=== PATIENT | male | born 1950 | race Caucasian/White ===

== ENCOUNTER → 2018-04-06 | Outpatient (CLI) | payer MEDICARE ==
[~2018-04-06] MED LIST: ASPI-586 PO; CIPR-225 PO; HYDR-3870 PO; LISI-556 PO; NITR-65 PO; OXYC-471 PO; TAMS0.4C98 PO; TERA5CAP3 PO
--- NOTE | 2018-04-06 15:34 | Diagnostic Imaging Report ---
INDICATION: History of ureteral calculi. COMPARISON: 03/29/2018 FINDINGS: Single supine radiographic view of the abdomen was obtained and demonstrates interval clearing of bilateral ureteral calculi described on prior exam. Residual bilateral nephrolithiasis remains. No unexpected radiopaque foreign bodies are seen. Small bowel loops are nondistended. Bony structures show degenerative changes of the lumbar spine. IMPRESSION: 1. Interval clearing of bilateral ureteral calculi. 2. Persistent bilateral nephrolithiasis. Dictated by: Dictated on workstation # [id number]
== END ==
LOC: RAD 11:32
PROVIDERS: ATTEND Urology
DX: N20.0 Calculus of kidney (principal); Z87.442 Personal history of urinary calculi
CPT/HCPCS: 74018

== ENCOUNTER → 2018-04-12 | Outpatient (CLI) | payer MEDICARE ==
--- NOTE | 2018-04-12 13:36 | Diagnostic Imaging Report ---
INDICATION: Renal calculi. Supine view of the abdomen is obtained with comparison made to study of 04/06/2018. FINDINGS: There are numerous bilateral renal calculi again demonstrated. In addition there are stones which project to the left of L5 indicating probable ureteric location. There is no evidence of bowel obstruction. No other significant change is identified. IMPRESSION: Bilateral nephrolithiasis with multiple small stones at the level of the left mid ureter. Clinical correlation is recommended. Dictated by: Dictated on workstation # [id number]
== END ==
LOC: RAD 13:15
PROVIDERS: ATTEND Urology
DX: N20.2 Calculus of kidney with calculus of ureter (principal)
CPT/HCPCS: 74018

== ENCOUNTER 2018-04-13 05:51 | Outpatient (CLI) | payer MEDICARE ==
[~2018-04-13] VITALS: Ht 182.9 cm; Wt 102.1 kg
[~2018-04-13 05:51] MED LIST changes: -LISI-556 PO; -OXYC-471 PO; -TAMS0.4C98 PO
[2018-04-13] MEDS ORDERED: LISI-556 PO (13:10)
[2018-04-14] MEDS ORDERED: NITR-65 PO (13:27)
[2018-04-14] MEDS ORDERED: OXYC-471 PO (13:27)
[2018-04-14] MEDS ORDERED: TAMS0.4C98 PO (13:27)
== END 2018-04-13 13:17 | disposition home or self-care (01) ==
LOC: PREOP 05:51
PROVIDERS: ATTEND Urology
DX: Z01.818 Encounter for other preprocedural examination (principal)

== ENCOUNTER 2018-04-14 08:32 | Day surgery (SDC) | payer MEDICARE ==
[~2018-04-14] VITALS: Ht 182.9 cm; Wt 102.1 kg
[~2018-04-14 08:32] MED LIST changes: +LISI-556 PO
--- OUTSIDE RECORDS SUMMARY | 2018-04-14 08:37 | XMS REPORT | Continuity of Care Document ---
Author Author [facility] Organization [facility] Address Unknown Phone Unavailable Allergies Active Description Code Type Severity Reaction Onset Reported/Identified Relationship to Patient Clinical Status Yes hydrocodone [id number] Drug Allergy Moderate NAUSEA/VOMITTIN 07/23/2015 Medications There is no data. Problems Date Dx Coded Attending Type Code Diagnosis Diagnosed By 07/11/2015 SNEHA MCCALLUM, BETZY A Ot N20.9 07/11/2015 SNEHA MCCALLUM, BETZY A Ot R31.2 07/25/2015 SNEHA MCCALLUM, BETZY A Ot N20.9 07/25/2015 SNEHA MCCALLUM, BETZY A Ot R31.2 07/25/2015 SNEHA MCCALLUM, BETZY A Ot N20.0 07/25/2015 SNEHA MCCALLUM, BETZY A Ot Z01.818 07/25/2015 SNEHA MCCALLUM, BETZY A Ot N20.9 07/25/2015 SNEHA MCCALLUM, BETZY A Ot R31.2 07/25/2015 SNEHA MCCALLUM, BETZY A Ot N20.0 07/25/2015 SNEHA MCCALLUM, BETZY A Ot Z01.818 07/30/2015 SNEHA MCCALLUM, BETZY A Ot N20.0 07/30/2015 SNEHA MCCALLUM, BETZY A Ot Z01.818 07/31/2015 SNEHA MCCALLUM, BETZY A Ot N20.0 07/31/2015 SNEHA MCCALLUM, BETZY A Ot Z11.2 08/06/2015 SNEHA MCCALLUM, BETZY A Ot N20.9 08/06/2015 SNEHA MCCALLUM, BETZY A Ot R31.2 08/06/2015 SNEHA MCCALLUM, BETZY A Ot N20.0 08/06/2015 SNEHA MCCALLUM, BETZY A Ot Z01.818 08/06/2015 SNEHA MCCALLUM, BETZY A Ot N20.0 08/06/2015 SNEHA MCCALLUM, BETZY Mora Ot Z11.2 08/08/2015 SNEHA MCCALLUM, BETZY Mora Ot N20.0 08/08/2015 SNEHA MCCALLUM, BETZY Mora Ot N20.1 08/08/2015 SNEHA MCCALLUM, BETZY A Ot Z11.2 09/05/2015 SNEHA MCCALLUM, BETZY A Ot N20.2 09/05/2015 SNEHA MCCALLUM, BETZY A Ot Z98.89 03/30/2018 SNEHA MCCALLUM, BETZY A Ot N13.2 HYDRONEPHROSIS WITH RENAL AND URETERAL C 03/30/2018 SNEHA MCCALLUM, BETZY Abby Ot N28.89 OTHER SPECIFIED DISORDERS OF KIDNEY AND 03/30/2018 BETZY HOOVER MD Ot R10.9 UNSPECIFIED ABDOMINAL PAIN Procedures There is no data. Results There is no data. Encounters ACCT No. Visit Date/Time Discharge Status Pt. Type Provider Facility Loc./Unit Complaint [id number] 03/29/2018 11:15:00 03/29/2018 23:59:59 CLS Outpatient BETZY HOOVER MD [facility] RAD LT FLANK PAIN,HX OF STONES [id number] 08/20/2015 14:01:00 08/20/2015 23:59:59 CLS Outpatient BETZY HOOVER MD [facility] RAD [id number] 08/08/2015 08:00:00 08/08/2015 13:10:00 DIS Outpatient BETZY HOOVER MD [facility] [id number] 08/07/2015 05:53:00 08/07/2015 23:59:59 CLS Outpatient BETZY HOOVER MD [facility] PREOP [id number] 08/06/2015 13:41:00 08/06/2015 23:59:59 CLS Outpatient BETZY HOOVER MD [facility] RAD [id number] 07/25/2015 05:50:00 07/25/2015 23:59:59 CLS Outpatient BETZY HOOVER MD [facility] [id number] 07/23/2015 06:00:00 07/23/2015 23:59:59 CLS Outpatient BETZY HOOVER MD [facility] PREOP [id number] 06/25/2015 13:13:00 06/25/2015 23:59:59 CLS Outpatient BETZY HOOVER MD [facility] RAD [id number] 04/14/2018 08:32:00 ACT Outpatient BETZY HOOVER MD [facility] SDC LEFT URETERAL STONE
[2018-04-14] MEDS ORDERED: cefTRIAXone FOR IV USE 1,000 MG in NS (IVPB) 50 ML IV ONE (08:45)
--- NOTE | 2018-04-14 08:47 | Progress Note-Pre Operative ---
Pre-Operative Progress Note H&P Reviewed The H&P was reviewed, patient examined and no changes noted. Date Seen by Provider: Apr 14, 2018 Time Seen by Provider: 08:46 Date H&P Reviewed: Apr 14, 2018 Time H&P Reviewed: 08:46 Pre-Operative Diagnosis: LT PROXIMAL URETERAL, BILATERAL RENAL AND POSSIBLE RT URETERAL STONES BETZY HOOVER MD Apr 14, 2018 8:47 am
--- NOTE | 2018-04-14 08:58 | Diagnostic Imaging Report ---
Indication: Ureteral stones. Multiple bilateral parenchymal renal calculi showed no definite change from prior. A calcification projects over the tip of the left fifth lumbar transverse process measuring 5.3 mm and is believed to be a stone. The adjacent stones at that same level have either passed or cannot be from the overlying bony pelvis. No adverse development. Impression: Multiple bilateral intrarenal stones. There is likely reduction in left ureteral stone burden with a 5.3 mm calculus at the level of the fifth lumbar transverse process. Dictated by: Dictated on workstation # [id number]
[2018-04-14 09:00] VITALS: BP 147/86
[2018-04-14] MEDS ORDERED: LACTATED RINGERS 1,000 ML IV PRN (09:16)
[2018-04-14] MEDS ORDERED: FAMOTIDINE 20MG/2ML IV (PEPCID) IV ONE (09:30)
[2018-04-14] MEDS ORDERED: fentaNYL INJECTION 100 MCG/2 ML AMP ONE (11:13)
[2018-04-14] MEDS ORDERED: MIDAZOLAM 2 MG/2 ML (VERSED) VIAL ONE (11:13)
[2018-04-14] MEDS ORDERED: ONDANSETRON 4 MG/2 ML (SDV) Z0FRAN ONE (11:14)
[2018-04-14] MEDS ORDERED: SEVOFLURANE (ULTANE) 15 ML INHAL SOLN ONE (11:14)
[2018-04-14] MEDS ORDERED: KETOROLAC 30 MG/ML VIAL ONE (11:14)
[2018-04-14] MEDS ORDERED: proPOfol 200 MG/20 ML (DIPRIVAN) VIAL IV ONE (11:14)
[2018-04-14] MEDS ORDERED: LIDOCAINE PF 2% 2 ML (XYLOCAINE) VIAL ONE (11:14)
--- NOTE | 2018-04-14 11:39 | Discharge Inst-Urology ---
Discharge Inst-Urology Discharge Medications New, Converted, or Re-newed RX: RX on Chart Patient Instructions/Follow Up Plan Please make appointment to been seen in office Thursday 04/26, KUB prior to it KUB on way home Post ESWL instructions Increase oral fluids for 48 hours and then as needed. Diet and Activity as tolerated. If questions or concerns contact your physician Or seek help at emergency department. BETZY HOOVER MD Apr 14, 2018 11:39 am
--- NOTE | 2018-04-14 11:40 | Progress Note-Post Operative ---
Post-Operative Progess Note Surgeon (s)/Customer Operations Associate (s) Surgeon BETZY HOOVER MD Customer Operations Associate: N/A Pre-Operative Diagnosis LT PROXIMAL URETERAL, BILATERAL RENAL AND POSSIBLE RT URETERAL STONES Post-Operative Diagnosis SAME Procedure & Operative Findings Date of Procedure 04/14/18 Procedure Performed/Findings LT ESWL Anesthesia Type GENERAL Estimated Blood Loss Estimated blood loss (mL): N/A Specimens/Packing Specimens Removed N/A Packing: N/A BETZY HOOVER MD Apr 14, 2018 11:40 am
[2018-04-14] MEDS ORDERED: morphine INJ 10 MG/ML 1ML (SYR OR VIAL) IVP ONE (12:00)
[2018-04-14 12:50] VITALS: BP 117/77
[2018-04-14 13:20] VITALS: BP 121/86
[2018-04-14] MEDS: ONDANSETRON 4 MG/2 ML (SDV) Z0FRAN IVP PRN ×3 (13:26→13:29)
[2018-04-14] MEDS ORDERED: OXYC-471 PO (13:27)
[2018-04-14] MEDS ORDERED: NITR-65 PO (13:27)
[2018-04-14] MEDS ORDERED: TAMS0.4C98 PO (13:27)
--- NOTE | 2018-04-14 14:19 | Anesthesia-General Post-Op ---
General Patient Condition Mental Status/LOC: Same as Preop Cardiovascular: Satisfactory Nausea/Vomiting: Absent Respiratory: Satisfactory Pain: Controlled Complications: Absent Post Op Complications Complications None Follow Up Care/Instructions Patient Instructions None needed. Anesthesia/Patient Condition Patient Condition Patient is doing well, no complaints, stable vital signs, no apparent adverse anesthesia problems. No complications reported per nursing. RENATA RIDDLE CRNA Apr 14, 2018 14:19
[2018-04-14 14:50] VITALS: BP 143/87
--- NOTE | 2018-04-14 15:40 | Diagnostic Imaging Report ---
INDICATION: Status post lithotripsy. EXAMINATION: KUB at 2:10 p.m. COMPARISON: Correlation is made with prior exam from earlier the same day. FINDINGS: Numerous calcific densities overlie both renal shadows consistent with renal calculi. There appears to have been some fragmentation of the calculus in the left mid ureter, status post lithotripsy. Bowel gas pattern is unremarkable. IMPRESSION: Fragmentation of the calculus in the mid left ureter, status post lithotripsy. Dictated by: Dictated on workstation # [id number]
--- NOTE | 2018-04-27 20:02 | OPERATIVE REPORT ---
DATE OF SERVICE: 04/14/2018 PREOPERATIVE DIAGNOSES: 1. Bilateral renal stone. 2. Left proximal renal stones. POSTOPERATIVE DIAGNOSES: 1. Bilateral renal stone. 2. Left proximal renal stones. OPERATION PERFORMED: Left ESWL for right ureteral stones and right renal stones. SURGEON: Mike Hoover MD ANESTHESIA: General. COMPLICATIONS: None. DESCRIPTION OF PROCEDURE: Under satisfactory general anesthesia, the patient in supine position on the ESWL table. We first localized the stones in the proximal left ureter and delivered shocks at a kV of 4 with complete fragmentation of the stones. Then, localized the renal stones and again completely fragmented them with a kV of 4. The patient received 40 mg of Lasix and 30 mg of Toradol IV at the end of the procedure. He tolerated the procedure and anesthesia well and was sent to recovery room in stable condition. Plan in 2 weeks consider ESWL the right renal stone if that is what the patient wants. Job ID: [id number] DocumentID: [id number] Dictated Date: 04/27/2018 13:34:32 Healthcare Translator Date: 04/27/2018 20:01:39 Dictated By: MIKE HOOVER MD [facility]
== END 2018-04-14 14:15 | disposition home or self-care (01) ==
LOC: SDC 08:32
PROVIDERS: ATTEND Urology
DX: N20.0 Calculus of kidney (principal); N20.1 Calculus of ureter; Z11.2 Encounter for screening for other bacterial diseases; N40.0 Benign prostatic hyperplasia without lower urinary tract symptoms; E78.1 Pure hyperglyceridemia; G47.33 Obstructive sleep apnea (adult) (pediatric); I10 Essential (primary) hypertension; E78.5 Hyperlipidemia, unspecified; K21.9 Gastro-esophageal reflux disease without esophagitis; Z87.891 Personal history of nicotine dependence; Z79.899 Other long term (current) drug therapy
CPT/HCPCS: 74018; 87081

== ENCOUNTER 2018-04-26 05:48 | Outpatient (CLI) | payer MEDICARE ==
[~2018-04-26] VITALS: Ht 182.9 cm; Wt 102.1 kg
[2018-04-27] MEDS ORDERED: OXYC-471 PO (11:54)
[2018-04-27] MEDS ORDERED: TAMS0.4C98 PO (11:54)
[2018-04-27] MEDS ORDERED: NITR-65 PO (11:54)
== END 2018-04-26 16:24 | disposition home or self-care (01) ==
LOC: PREOP 05:48
PROVIDERS: ATTEND Urology
DX: Z01.818 Encounter for other preprocedural examination (principal)

== ENCOUNTER → 2018-04-26 | Outpatient (CLI) | payer MEDICARE ==
[~2018-04-26] MED LIST changes: +OXYC-471 PO; +TAMS0.4C98 PO
--- NOTE | 2018-04-26 16:05 | Diagnostic Imaging Report ---
Indication: Nephrolithiasis. KUB 1:48 PM There are several small stone fragments projecting within upper, middle and lower pole calyces of the left kidney. There are some more organized stone fragments projecting over the lower pole of the right kidney, largest of which measures 6 mm in diameter. There is a 6 mm well-circumscribed round calcification near the right ureteral vesicle junction that could be phlebolith versus distal ureteral calculus. Impression: Bilateral nephrolithiasis. Questionable right ureteral calculus. No significant change compared to 04/14/2018. Dictated by: Dictated on workstation # [id number]
== END ==
LOC: RAD 13:17
PROVIDERS: ATTEND Urology
DX: N20.2 Calculus of kidney with calculus of ureter (principal)
CPT/HCPCS: 74018

== ENCOUNTER 2018-04-27 06:34 | Day surgery (SDC) | payer MEDICARE ==
[~2018-04-27] VITALS: Ht 182.9 cm; Wt 102.1 kg
--- OUTSIDE RECORDS SUMMARY | 2018-04-27 06:37 | XMS REPORT | Continuity of Care Document ---
Author Author [facility] Organization [facility] Address Unknown Phone Unavailable Allergies Active Description Code Type Severity Reaction Onset Reported/Identified Relationship to Patient Clinical Status Yes hydrocodone [id number] Drug Allergy Moderate NAUSEA/VOMITTIN 07/23/2015 Medications There [...] SNEHA MCCALLUM, BETZY A Ot N20.0 08/06/2015 BETZY HOOVER MD Ot Z11.2 08/08/2015 SNEHA MCCALLUM, BETZY Mora Ot N20.0 08/08/2015 SNEHA MCCALLUM, BETYZ Mora Ot N20.1 08/08/2015 SNEHA MCCALLUM, BETZY Mora Ot Z11.2 09/05/2015 SNEHA MCCALLUM, BETZY Mora Ot N20.2 09/05/2015 SNEHA MCCALLUM, BETZY Mora Ot Z98.89 03/30/2018 BETZY HOOVER MD Ot N13.2 HYDRONEPHROSIS WITH RENAL AND URETERAL C 03/30/2018 SNEHA MCCALLUM, BETZY Mora Ot N28.89 OTHER SPECIFIED DISORDERS OF KIDNEY AND 03/30/2018 BETZY HOOVER MD Ot R10.9 UNSPECIFIED ABDOMINAL PAIN 04/07/2018 BETZY HOOVER MD, Ot N20.0 CALCULUS OF KIDNEY 04/07/2018 BETZY HOOVER MD Ot Z87.442 PERSONAL HISTORY OF URINARY CALCULI 04/13/2018 BETZY HOOVER MD Ot N20.2 CALCULUS OF KIDNEY WITH CALCULUS OF URET 04/13/2018 BETZY HOOVER MD Ot Z01.818 ENCOUNTER FOR OTHER PREPROCEDURAL EXAMIN 04/14/2018 BETZY HOOVER MD Ot E78.1 PURE HYPERGLYCERIDEMIA 04/14/2018 BETZY HOOVER MD Ot E78.5 HYPERLIPIDEMIA, UNSPECIFIED 04/14/2018 BETZY HOOVER MD Ot G47.33 OBSTRUCTIVE SLEEP APNEA (ADULT) (PEDIATR 04/14/2018 BETZY HOOVER MD Ot I10 ESSENTIAL (PRIMARY) HYPERTENSION 04/14/2018 BETZY HOOVER MD Ot K21.9 GASTRO-ESOPHAGEAL REFLUX DISEASE WITHOUT 04/14/2018 BETZY HOOVER MD Ot N20.0 CALCULUS OF KIDNEY 04/14/2018 BETZY HOOVER MD Ot N20.1 CALCULUS OF URETER 04/14/2018 BETZY HOOVER MD Ot N40.0 BENIGN PROSTATIC HYPERPLASIA WITHOUT LOW 04/14/2018 BETZY HOOVER MD Ot Z11.2 ENCOUNTER FOR SCREENING FOR OTHER BACTER 04/14/2018 BETZY HOOVER MD, Ot Z79.899 OTHER [facility] (CURRENT) DRUG THERAPY 04/14/2018 BETZY HOOVER MD, Ot Z87.891 PERSONAL HISTORY OF NICOTINE DEPENDENCE 04/15/2018 BETZY HOOVER MD Ot Z01.818 ENCOUNTER FOR OTHER PREPROCEDURAL EXAMIN 04/18/2018 BETZY HOOVER MD Ot N20.2 CALCULUS OF KIDNEY WITH CALCULUS OF URET 04/19/2018 BETZY HOOVER MD Ot E78.1 PURE HYPERGLYCERIDEMIA 04/19/2018 BETZY HOOVER MD Ot E78.5 HYPERLIPIDEMIA, UNSPECIFIED 04/19/2018 BETZY HOOVER MD Ot G47.33 OBSTRUCTIVE SLEEP APNEA (ADULT) (PEDIATR 04/19/2018 BETZY HOOVER MD Ot I10 ESSENTIAL (PRIMARY) HYPERTENSION 04/19/2018 BETZY HOOVER MD Ot K21.9 GASTRO-ESOPHAGEAL REFLUX DISEASE WITHOUT 04/19/2018 BETZY HOOVER MD Ot N20.0 CALCULUS OF KIDNEY 04/19/2018 BETZY HOOVER MD Ot N20.1 CALCULUS OF URETER 04/19/2018 BETZY HOOVER MD Ot N40.0 BENIGN PROSTATIC HYPERPLASIA WITHOUT LOW 04/19/2018 BETZY HOOVER MD Ot Z11.2 ENCOUNTER FOR SCREENING FOR OTHER BACTER 04/19/2018 BETZY HOOVER MD Ot Z79.899 OTHER [facility] (CURRENT) DRUG THERAPY 04/19/2018 BETZY HOOVER MD, Ot Z87.891 PERSONAL HISTORY OF NICOTINE DEPENDENCE 04/20/2018 BETZY HOOVER MD Ot N13.2 HYDRONEPHROSIS WITH RENAL AND URETERAL C 04/20/2018 BETZY HOOVER MD, Ot N28.89 OTHER SPECIFIED DISORDERS OF KIDNEY AND 04/20/2018 BETZY HOOVER MD Ot R10.9 UNSPECIFIED ABDOMINAL PAIN 04/20/2018 BETZY HOOVER MD, Ot N20.0 CALCULUS OF KIDNEY 04/20/2018 BETZY HOOVER MD, Ot Z87.442 PERSONAL HISTORY OF URINARY CALCULI 04/20/2018 BETZY HOOVER MD, Ot N20.2 CALCULUS OF KIDNEY WITH CALCULUS OF URET 04/21/2018 BETZY HOOVER MD Ot N13.2 HYDRONEPHROSIS WITH RENAL AND URETERAL C 04/21/2018 BETZY HOOVER MD Ot N28.89 OTHER SPECIFIED DISORDERS OF KIDNEY AND 04/21/2018 BETZY HOOVER MD Ot R10.9 UNSPECIFIED ABDOMINAL PAIN 04/27/2018 Ot N20.2 CALCULUS OF KIDNEY WITH CALCULUS OF URET Procedures There is no data. Results Test Result Range Methicillin resistant Staphylococcus aureus (MRSA) screening culture - 08:55 Methicillin resistant Staphylococcus aureus (MRSA) screening culture NEG NRG Encounters ACCT No. Visit Date/Time Discharge Status Pt. Type Provider Facility Loc./Unit Complaint [id number] 04/26/2018 05:48:00 04/26/2018 16:24:00 DIS Outpatient BETZY HOOVER MD [facility] PREOP STONE [id number] 04/14/2018 11:15:00 04/14/2018 23:59:59 CLS Outpatient BETZY HOOVER MD [facility] SDC LEFT URETERAL STONE [id number] 04/13/2018 05:51:00 04/13/2018 13:17:00 DIS Outpatient BETZY HOOVER MD [facility] PREOP LEFT URETERAL STONE [id number] 04/12/2018 13:15:00 04/12/2018 23:59:59 CLS Outpatient BETZY HOOVER MD [facility] RAD KIRAN URETERAL RENAL STONES [id number] 04/06/2018 11:32:00 04/06/2018 23:59:59 CLS Outpatient BETZY HOOVER MD [facility] RAD BILATERAL URETERAL AND RENAL STONES [id number] 03/29/2018 11:15:00 03/29/2018 23:59:59 CLS Outpatient BETZY HOOVER MD [facility] RAD LT FLANK PAIN,HX OF STONES [id number] 08/20/2015 14:01:00 08/20/2015 23:59:59 CLS Outpatient BETZY HOOVER MD [facility] RAD [id number] 08/08/2015 08:00:00 08/08/2015 13:10:00 DIS Outpatient BETZY HOOVER MD [facility] [id number] 08/07/2015 05:53:00 08/07/2015 23:59:59 CLS Outpatient BETZY HOOVER MD [facility] PREOP [id number] 08/06/2015 13:41:00 08/06/2015 23:59:59 CLS Outpatient BETZY HOOVER MD [facility] RAD [id number] 07/25/2015 05:50:00 07/25/2015 23:59:59 CLS Outpatient BETZY HOOVER MD [facility] [id number] 07/23/2015 06:00:00 07/23/2015 23:59:59 CLS Outpatient BETZY HOOVER MD [facility] PREOP [id number] 06/25/2015 13:13:00 06/25/2015 23:59:59 CLS Outpatient BETZY HOOVER MD [facility] RAD [id number] 04/27/2018 09:00:00 PEN Preadmit BETZY HOOVER MD [facility] [id number] 04/26/2018 13:17:00 Document Registration
[2018-04-27 06:55] VITALS: BP 144/79
[2018-04-27] MEDS ORDERED: cefTRIAXone FOR IV USE 1,000 MG in NS (IVPB) 50 ML IV ONE (07:00)
[2018-04-27] MEDS ORDERED: CATHETER FLUSH 10 ML SYR IV PRN (07:00)
--- NOTE | 2018-04-27 07:05 | Progress Note-Pre Operative ---
Pre-Operative Progress Note H&P Reviewed The H&P was reviewed, patient examined and no changes noted. Date Seen by Provider: Apr 27, 2018 Time Seen by Provider: 07:04 Date H&P Reviewed: Apr 27, 2018 Time H&P Reviewed: 07:04 Pre-Operative Diagnosis: BILATERAL RENAL STONES BETZY HOOVER MD Apr 27, 2018 7:05 am
[2018-04-27] MEDS ORDERED: ONDANSETRON 4 MG/2 ML (SDV) Z0FRAN ONE (07:11)
[2018-04-27] MEDS ORDERED: DEXAMETHASONE 10 MG/ML (DECADRON) 1 ML VIAL ONE (07:11)
[2018-04-27] MEDS ORDERED: proPOfol 200 MG/20 ML (DIPRIVAN) VIAL IV ONE (07:11)
[2018-04-27] MEDS ORDERED: LIDOCAINE PF 2% 2 ML (XYLOCAINE) VIAL ONE (07:11)
[2018-04-27] MEDS ORDERED: MIDAZOLAM 2 MG/2 ML (VERSED) VIAL ONE (07:12)
[2018-04-27] MEDS ORDERED: fentaNYL INJECTION 100 MCG/2 ML AMP ONE (07:12)
[2018-04-27] MEDS ORDERED: FUROSEMIDE 40 MG/4 ML INJ (LASIX) ONE (07:13)
[2018-04-27] MEDS ORDERED: KETOROLAC 30 MG/ML VIAL ONE (07:14)
[2018-04-27] MEDS ORDERED: LACTATED RINGERS 1,000 ML IV SCH (07:45)
--- NOTE | 2018-04-27 08:19 | Diagnostic Imaging Report ---
INDICATION: Nephrolithiasis Compared with exam one day prior. Innumerable bilateral left greater than right intrarenal stones are present. Large calcification in the right hemipelvis unchanged presumed extra ureteral phleboliths. The left paramedian lower pelvic calcification unchanged, may be prostatic. No definite ureteral stone could be identified in this unprepped abdomen. IMPRESSION: Extensive bilateral nephrolithiasis showed no obvious change. Dictated by: Dictated on workstation # [id number]
[2018-04-27] MEDS ORDERED: SEVOFLURANE (ULTANE) 15 ML INHAL SOLN ONE ×3 (10:27→10:42)
--- NOTE | 2018-04-27 10:28 | Progress Note-Post Operative ---
Post-Operative Progess Note Surgeon (s)/Potline Monitor (s) Surgeon BETZY HOOVER MD Potline Monitor: NONE Pre-Operative Diagnosis BILATERAL RENAL STONES Post-Operative Diagnosis SAME Procedure & Operative Findings Date of Procedure 04/27/18 Procedure Performed/Findings RT ESWL Anesthesia Type GENERAL Estimated Blood Loss Estimated blood loss (mL): NONE Specimens/Packing Specimens Removed NONE Packing: NONE BETZY HOOVER MD Apr 27, 2018 10:28 am
--- NOTE | 2018-04-27 10:30 | Discharge Inst-Urology ---
Discharge Inst-Urology Discharge Medications New, Converted, or Re-newed RX: RX on Chart Patient Instructions/Follow Up Plan Please make appointment to been seen in office Thursday 05/10, KUB prior to it KUB on way home Post ESWL instructions Increase oral fluids for 48 hours and then as needed. Diet and Activity as tolerated. If questions or concerns contact your physician Or seek help at emergency department. BETZY HOOVER MD Apr 27, 2018 10:30 am
[2018-04-27] MEDS ORDERED: morphine INJ 10 MG/ML 1ML (SYR OR VIAL) IVP ONE (11:00)
[2018-04-27] MEDS ORDERED: ONDANSETRON 4 MG/2 ML (SDV) Z0FRAN IVP PRN (11:00)
[2018-04-27] MEDS ORDERED: morphine INJ 10 MG/ML 1ML (SYR OR VIAL) ONE (11:04)
[2018-04-27 11:35] VITALS: BP 147/77
[2018-04-27] MEDS ORDERED: TAMS0.4C98 PO (11:54)
[2018-04-27] MEDS ORDERED: OXYC-471 PO (11:54)
[2018-04-27] MEDS ORDERED: NITR-65 PO (11:54)
[2018-04-27 12:05] VITALS: BP 151/88
[2018-04-27 12:10] VITALS: BP 151/88
--- NOTE | 2018-04-27 12:25 | Anesthesia-General Post-Op ---
General Patient Condition Mental Status/LOC: Same as Preop Cardiovascular: Satisfactory Nausea/Vomiting: Absent Respiratory: Satisfactory Pain: Controlled Complications: Absent Post Op Complications Complications None Follow Up Care/Instructions Patient Instructions None needed. Anesthesia/Patient Condition Patient Condition Patient is doing well, no complaints, stable vital signs, no apparent adverse anesthesia problems. No complications reported per nursing. D/C home per [facility] [place] Criteria: Yes ANGELA ROSADO CRNA Apr 27, 2018 12:25
--- NOTE | 2018-04-27 14:57 | OPERATIVE REPORT ---
DATE OF SERVICE: 04/27/2018 PREOPERATIVE DIAGNOSIS: Right renal stones. POSTOPERATIVE DIAGNOSIS: Right renal stones. OPERATION PERFORMED: Right ESWL. SURGEON: Mike Hoover MD ANESTHESIA: General. COMPLICATIONS: None. DESCRIPTION OF PROCEDURE: After satisfactory general anesthesia, the patient in supine position on the ESWL table. The right renal stones were localized. Shocks were delivered at a kV of x4. A total of 3000 shocks fragmented the stones completely and there was good layering. The patient received 40 mg of Lasix and 30 mg of Toradol IV at the end of the procedure. He tolerated the procedure and anesthesia well and was sent to recovery room in stable condition. Job ID: [id number] DocumentID: [id number] Dictated Date: 04/27/2018 10:43:14 Nuclear Power Plant Engineer Date: 04/27/2018 14:56:36 Dictated By: MIKE HOOVER MD
--- NOTE | 2018-04-27 17:31 | Diagnostic Imaging Report ---
INDICATION: Nephrolithiasis, post extracorporeal shock wave lithotripsy. TECHNIQUE: Single supine view of the abdomen 12:46 PM. CORRELATION STUDY: 04/27/2018 FINDINGS: Multiple calcifications over bilateral renal silhouettes are present. There does appear to be very slight interval change with slightly more fragmented appearance of a larger stone over the inferior pole of the right kidney. Otherwise, majority of the calcifications appear to be generally stable. Definitive calcification along the expected course of either ureter does not appear to be present. Calcification of the pelvis appearing stable. Bowel gas pattern unremarkable. Leftward curvature lumbar spine with hypertrophic facet arthropathy. IMPRESSION: 1. Extensive bilateral nephrolithiasis. May be perhaps slightly fragmented appearance about the stone over the inferior pole of the right kidney. Dictated by: Dictated on workstation # [id number]
== END 2018-04-27 12:35 | disposition home or self-care (01) ==
LOC: SDC 06:34
PROVIDERS: ATTEND Urology
DX: N20.0 Calculus of kidney (principal); I10 Essential (primary) hypertension; G47.33 Obstructive sleep apnea (adult) (pediatric); K21.9 Gastro-esophageal reflux disease without esophagitis; Z68.30 Body mass index [BMI] 30.0-30.9, adult; Z87.891 Personal history of nicotine dependence; Z79.82 Long term (current) use of aspirin; Z79.899 Other long term (current) drug therapy
CPT/HCPCS: 74018; 87081

== ENCOUNTER → 2018-05-10 | Outpatient (CLI) | payer MEDICARE ==
--- NOTE | 2018-05-10 14:51 | Diagnostic Imaging Report ---
INDICATION: Nephrolithiasis. COMPARISON: Comparison made with prior examination 04/27/2018. FINDINGS: There are numerous bilateral calcifications projected over both kidneys. Bowel gas pattern is nonspecific. IMPRESSION: Bilateral nephrolithiasis essentially unchanged when compared to prior examination. Dictated by: Dictated on workstation # [id number]
== END ==
LOC: RAD 14:31
PROVIDERS: ATTEND Urology
DX: N20.0 Calculus of kidney (principal)
CPT/HCPCS: 74018

== ENCOUNTER → 2018-08-09 | Outpatient (CLI) | payer MEDICARE ==
--- NOTE | 2018-08-09 16:01 | Diagnostic Imaging Report ---
INDICATION: Nephrolithiasis. EXAMINATION: KUB at 3:45 PM. FINDINGS: There are calyceal calcifications projecting over both kidneys. The largest stone measures 5 mm and is in the lower pole of the right kidney. There also appears to be a calculus in the proximal right ureter measuring 5 mm in diameter. IMPRESSION: Bilateral nephrolithiasis and a 5 mm right proximal ureterolithiasis. Dictated by: Dictated on workstation # [id number]
== END ==
LOC: RAD 15:13
PROVIDERS: ATTEND Urology
DX: N20.2 Calculus of kidney with calculus of ureter (principal)
CPT/HCPCS: 74018

== ENCOUNTER 2018-08-30 05:35 | Outpatient (CLI) | payer MEDICARE ==
[~2018-08-30] VITALS: Ht 182.9 cm; Wt 102.1 kg
== END 2018-08-30 11:12 | disposition home or self-care (01) ==
LOC: PREOP 05:35
PROVIDERS: ATTEND Urology
DX: Z01.818 Encounter for other preprocedural examination (principal)

== ENCOUNTER 2018-09-14 06:33 | Day surgery (SDC) | payer MEDICARE ==
[~2018-09-14] VITALS: Ht 182.9 cm; Wt 102.1 kg
--- OUTSIDE RECORDS SUMMARY | 2018-09-14 06:36 | XMS REPORT | Continuity of Care Document ---
Author Author [facility] Organization [facility] Address Unknown Phone Unavailable Allergies Active Description Code Type Severity Reaction Onset Reported/Identified Relationship to Patient Clinical Status Yes hydrocodone [id number] Drug Allergy Moderate NAUSEA/VOMITTIN 07/23/2015 Medications There [...] R10.9 UNSPECIFIED ABDOMINAL PAIN 04/07/2018 BETZY HOOVER MD Ot N20.0 CALCULUS OF KIDNEY 04/07/2018 BETZY [...] MD Ot I10 ESSENTIAL (PRIMARY) HYPERTENSION 04/14/2018 BTEZY HOOVER MD Ot K21.9 GASTRO-ESOPHAGEAL REFLUX DISEASE WITHOUT 04/14/2018 BETZY HOOVER MD Ot N20.0 CALCULUS OF KIDNEY 04/14/2018 BETZY HOOVER MD Ot N20.1 CALCULUS OF URETER 04/14/2018 BETZY HOOVER MD Ot N40.0 BENIGN PROSTATIC HYPERPLASIA WITHOUT LOW 04/14/2018 BETZY HOOVER MD Ot Z11.2 ENCOUNTER FOR SCREENING FOR OTHER BACTER 04/14/2018 BETZY HOOVER MD Ot Z79.899 OTHER [facility] [...] 04/19/2018 BETZY HOOVER MD Ot Z79.899 OTHER FINANCIAL REPORTING SPECIALIST (CURRENT) DRUG THERAPY 04/19/2018 BETZY HOOVER MD, Ot Z87.891 PERSONAL HISTORY OF NICOTINE DEPENDENCE 04/20/2018 BETZY HOOVER MD Ot N13.2 HYDRONEPHROSIS WITH RENAL AND URETERAL C 04/20/2018 BETZY HOOVER MD Ot N28.89 OTHER SPECIFIED DISORDERS OF KIDNEY AND 04/20/2018 BETZY HOOVER MD Ot R10.9 UNSPECIFIED ABDOMINAL PAIN 04/20/2018 BETZY HOOVER MD Ot N20.0 CALCULUS OF KIDNEY 04/20/2018 BETZY HOOVER MD, Ot Z87.442 PERSONAL HISTORY OF URINARY CALCULI 04/20/2018 BETZY HOOVER MD Ot N20.2 CALCULUS OF KIDNEY WITH CALCULUS OF URET 04/21/2018 BETZY HOOVER MD, Ot N13.2 HYDRONEPHROSIS WITH RENAL AND URETERAL C 04/21/2018 BETZY HOOVER MD, Ot N28.89 OTHER SPECIFIED DISORDERS OF KIDNEY AND 04/21/2018 BETZY HOOVER MD, Ot R10.9 UNSPECIFIED ABDOMINAL PAIN 04/26/2018 BETZY HOOVER MD Ot Z01.818 ENCOUNTER FOR OTHER PREPROCEDURAL EXAMIN 04/27/2018 Ot N20.2 CALCULUS OF KIDNEY WITH CALCULUS OF URET 04/27/2018 BETZY HOOVER MD, Ot Z01.818 ENCOUNTER FOR OTHER PREPROCEDURAL EXAMIN 04/27/2018 BETZY HOOVER MD, Ot G47.33 OBSTRUCTIVE SLEEP APNEA (ADULT) (PEDIATR 04/27/2018 BETZY HOOVER MD, Ot I10 ESSENTIAL (PRIMARY) HYPERTENSION 04/27/2018 BETZY HOOVER MD, Ot K21.9 GASTRO-ESOPHAGEAL REFLUX DISEASE WITHOUT 04/27/2018 BETZY HOOVER MD Ot N20.0 CALCULUS OF KIDNEY 04/27/2018 BETZY HOOVER MD, Ot Z68.30 BODY MASS INDEX (BMI) 30.0-30.9, ADULT 04/27/2018 BETZY HOOVER MD, Ot Z79.82 FINANCIAL REPORTING SPECIALIST (CURRENT) USE OF ASPIRIN 04/27/2018 BETZY HOOVER MD, Ot Z79.899 OTHER [facility] (CURRENT) DRUG THERAPY 04/27/2018 BETZY HOOVER MD, Ot Z87.891 PERSONAL HISTORY OF NICOTINE DEPENDENCE 04/29/2018 BETZY HOOVER MD, Ot G47.33 OBSTRUCTIVE SLEEP APNEA (ADULT) (PEDIATR 04/29/2018 BETZY HOOVER MD, Ot I10 ESSENTIAL (PRIMARY) HYPERTENSION 04/29/2018 BETZY HOOVER MD, Ot K21.9 GASTRO-ESOPHAGEAL REFLUX DISEASE WITHOUT 04/29/2018 BETZY HOOVER MD, Ot N20.0 CALCULUS OF KIDNEY 04/29/2018 BETZY HOOVER MD, Ot Z68.30 BODY MASS INDEX (BMI) 30.0-30.9, ADULT 04/29/2018 BETZY HOOVER MD, Ot Z79.82 FINANCIAL REPORTING SPECIALIST (CURRENT) USE OF ASPIRIN 04/29/2018 BETZY HOOVER MD Ot Z79.899 OTHER FINANCIAL REPORTING SPECIALIST (CURRENT) DRUG THERAPY 04/29/2018 BETZY HOOVER MD Ot Z87.891 PERSONAL HISTORY OF NICOTINE DEPENDENCE 04/30/2018 BETZY HOOVER MD Ot N20.0 CALCULUS OF KIDNEY 04/30/2018 BETZY HOOVER MD, Ot Z87.442 PERSONAL HISTORY OF URINARY CALCULI 05/11/2018 BETZY HOOVER MD Ot N20.0 CALCULUS OF KIDNEY 05/13/2018 BETZY HOOVER MD, Ot N20.0 CALCULUS OF KIDNEY 05/13/2018 BETZY HOOVER MD, Ot Z87.442 PERSONAL HISTORY OF URINARY CALCULI 05/13/2018 BETZY HOOVER MD Ot N13.2 HYDRONEPHROSIS WITH RENAL AND URETERAL C 05/13/2018 BETZY HOOVER MD Ot N28.89 OTHER SPECIFIED DISORDERS OF KIDNEY AND 05/13/2018 BETZY HOOVER MD Ot R10.9 UNSPECIFIED ABDOMINAL PAIN 05/18/2018 Ot N20.2 CALCULUS OF KIDNEY WITH CALCULUS OF URET 05/27/2018 BETZY HOOVER MD Ot N20.2 CALCULUS OF KIDNEY WITH CALCULUS OF URET 06/01/2018 BETZY HOOVER MD Ot N20.0 CALCULUS OF KIDNEY 06/04/2018 Ot N20.2 CALCULUS OF KIDNEY WITH CALCULUS OF URET 06/17/2018 BETZY HOOVER MD Ot N20.0 CALCULUS OF KIDNEY 08/11/2018 BETZY HOOVER MD Ot N20.2 CALCULUS OF KIDNEY WITH CALCULUS OF URET 08/30/2018 BETZY HOOVER MD Ot Z01.818 ENCOUNTER FOR OTHER PREPROCEDURAL EXAMIN 09/05/2018 BETZY HOOVER MD Ot Z01.818 ENCOUNTER FOR OTHER PREPROCEDURAL EXAMIN 09/06/2018 BETZY HOOVER MD, Ot N20.2 CALCULUS OF KIDNEY WITH CALCULUS OF URET 09/14/2018 BETZY HOOVER MD, Ot N13.2 HYDRONEPHROSIS WITH RENAL AND URETERAL C 09/14/2018 BETZY HOOVER MD Ot N28.89 OTHER SPECIFIED DISORDERS OF KIDNEY AND 09/14/2018 BETZY HOOVER MD Ot R10.9 UNSPECIFIED ABDOMINAL PAIN 09/14/2018 BETZY HOOVER MD, Ot N20.0 CALCULUS OF KIDNEY 09/14/2018 BETZY HOOVER MD Ot Z87.442 PERSONAL HISTORY OF URINARY CALCULI 09/14/2018 BETZY HOOVER MD Ot N20.2 CALCULUS OF KIDNEY WITH CALCULUS OF URET 09/14/2018 Ot N20.2 CALCULUS OF KIDNEY WITH CALCULUS OF URET 09/14/2018 BETZY HOOVER MD Ot N20.0 CALCULUS OF KIDNEY 09/14/2018 BETZY HOOVER MD, Ot N20.2 CALCULUS OF KIDNEY WITH CALCULUS OF URET Procedures There is no data. Results Test Result Range Methicillin resistant Staphylococcus aureus (MRSA) screening culture - 08:55 Methicillin resistant Staphylococcus aureus (MRSA) screening culture NEG NRG Methicillin resistant Staphylococcus aureus (MRSA) screening culture - 07:00 Methicillin resistant Staphylococcus aureus (MRSA) screening culture NEG NRG Encounters ACCT No. Visit Date/Time Discharge Status Pt. Type Provider Facility Loc./Unit Complaint [id number] 08/30/2018 05:35:00 08/30/2018 11:12:00 DIS Outpatient BETZY HOOVER MD [facility] PREOP RIGHT ESWL [id number] 08/09/2018 15:13:00 08/09/2018 23:59:59 CLS Outpatient BETZY HOOVER MD [facility] RAD BILATERAL RENAL URETERAL STONES [id number] 05/10/2018 14:31:00 05/10/2018 23:59:59 CLS Outpatient BETZY HOOVER MD [facility] RAD RT RENAL STONES [id number] 04/27/2018 06:34:00 04/27/2018 12:35:00 DIS Outpatient BETZY HOOVER MD [facility] SDC STONE [id number] 04/26/2018 05:48:00 04/26/2018 16:24:00 DIS Outpatient BETZY HOOVER MD [facility] PREOP STONE [id number] 04/14/2018 11:15:00 04/14/2018 23:59:59 CLS Outpatient BETZY HOOVER MD [facility] LEFT URETERAL STONE [id number] 04/13/2018 05:51:00 04/13/2018 13:17:00 DIS Outpatient BETZY HOOVER MD [facility] PREOP LEFT URETERAL STONE [id number] 04/12/2018 13:15:00 04/12/2018 23:59:59 CLS Outpatient BETZY HOOVER MD [facility] RAD KIRAN URETERAL RENAL STONES [id number] 04/06/2018 11:32:00 04/06/2018 23:59:59 CLS Outpatient BETZY HOOVER MD [facility] RAD BILATERAL URETERAL AND RENAL STONES [id number] 03/29/2018 11:15:00 03/29/2018 23:59:59 CLS Outpatient BETZY HOOVER MD [facility] RAD LT FLANK PAIN,HX OF STONES [id number] 08/20/2015 14:01:00 08/20/2015 23:59:59 CLS Outpatient BETZY HOOVER MD [facility] RAD [id number] 08/08/2015 08:00:00 08/08/2015 13:10:00 DIS Outpatient BETZY HOOVER MD [facility] [id number] 08/07/2015 05:53:00 08/07/2015 23:59:59 CLS Outpatient BETZY HOOVER MD [facility] PREOP [id number] 08/06/2015 13:41:00 08/06/2015 23:59:59 CLS Outpatient BETZY HOOVER MD [facility] RAD [id number] 07/25/2015 05:50:00 07/25/2015 23:59:59 CLS Outpatient BETZY HOOVER MD [facility] [id number] 07/23/2015 06:00:00 07/23/2015 23:59:59 CLS Outpatient BETZY HOOVER MD [facility] PREOP [id number] 06/25/2015 13:13:00 06/25/2015 23:59:59 CLS Outpatient BETZY HOOVER MD [facility] RAD [id number] 09/14/2018 06:33:00 [facility] [id number] 04/26/2018 13:17:00 Document Registration
[2018-09-14 07:00] VITALS: BP 146/83
--- NOTE | 2018-09-14 07:06 | Progress Note-Pre Operative ---
Pre-Operative Progress Note H&P Reviewed The H&P was reviewed, patient examined and no changes noted. Date Seen by Provider: Sep 14, 2018 Time Seen by Provider: 07:06 Date H&P Reviewed: Sep 14, 2018 Time H&P Reviewed: 07:06 Pre-Operative Diagnosis: RT URETERAL AND BILATERAL RENAL STONES BETZY HOOVER MD Sep 14, 2018 07:06
[2018-09-14] MEDS: LACTATED RINGERS 1,000 ML IV PRN ×2 (07:20→10:08)
[2018-09-14] MEDS ORDERED: LACTATED RINGERS 1,000 ML IV PRN (07:36)
[2018-09-14] MEDS ORDERED: CATHETER FLUSH 10 ML SYR IV PRN (07:45)
[2018-09-14] MEDS ORDERED: cefTRIAXone 1,000 MG/SWFI 10 ML IV PUSH IV ONE ×2 (07:45)
[2018-09-14] MEDS ORDERED: DEXAMETHASONE 10 MG/ML (DECADRON) 1 ML VIAL ONE (08:17)
[2018-09-14] MEDS ORDERED: LIDOCAINE PF 2% 5 ML (XYLOCAINE) VIAL ONE (08:17)
[2018-09-14] MEDS ORDERED: MIDAZOLAM 2 MG/2 ML (VERSED) VIAL ONE (08:17)
[2018-09-14] MEDS ORDERED: fentaNYL INJECTION 100 MCG/2 ML AMP ONE (08:17)
[2018-09-14] MEDS ORDERED: SEVOFLURANE (ULTANE) 15 ML INHAL SOLN ONE ×3 (08:17→10:11)
[2018-09-14] MEDS ORDERED: proPOfol 200 MG/20 ML (DIPRIVAN) VIAL IV ONE (08:17)
[2018-09-14] MEDS ORDERED: ONDANSETRON 4 MG/2 ML (SDV) Z0FRAN ONE (08:17)
[2018-09-14] MEDS ORDERED: KETOROLAC 30 MG/ML VIAL ONE (08:18)
[2018-09-14] MEDS ORDERED: FUROSEMIDE 40 MG/4 ML INJ (LASIX) ONE (08:18)
--- NOTE | 2018-09-14 08:55 | Diagnostic Imaging Report ---
INDICATION: Renal stones. TECHNIQUE: Single view of the abdomen 7:06 AM CORRELATION STUDY: 08/09/2018 FINDINGS: Multiple calcifications various sizes project over both renal silhouettes. Large calcification over the inferior pole of the right kidney. Largest stone burden over the left kidney. There appears to be some change in the overall distribution and appearance of the calcification compared to prior study. The previously noted calcification along the right paraspinal region not appreciated on followup. Calcification of the right hemipelvis unchanged. Leftward curvature lumbar spine. Degenerative change about the lumbar spine. IMPRESSION: 1. Findings compatible with bilateral renal stones. The overall distribution and appearance of the stones does appear to be somewhat changed from study of one month ago. The previously demonstrated right ureteral stone not definitively appreciated on this study. Dictated by: Dictated on workstation # [id number]
[2018-09-14] MEDS ORDERED: IOPAMIDOL 61% 30 ML (ISOVUE 300) VIAL IV ONE (09:25)
[2018-09-14] MEDS ORDERED: ROCURONIUM 10 MG/ML 5 ML SYRINGE IV ONE (10:00)
[2018-09-14] MEDS ORDERED: PHENYLEPHRINE 100 MCG/ML 10 ML (ANESTHESIA) SYR ONE (10:12)
[2018-09-14] MEDS ORDERED: HYDROmorphone 2 MG/ML VIAL (DILAUDID) IV ONE (11:00)
[2018-09-14] MEDS ORDERED: MEPERIDINE (DEMEROL) INJ 50 MG/ML IVP ONE (11:00)
[2018-09-14] MEDS ORDERED: PROMETHAZINE INJ 25 MG/ML (PHENERGAN) AMP IVP ONE (11:00)
[2018-09-14] MEDS ORDERED: ONDANSETRON 4 MG/2 ML (SDV) Z0FRAN IVP PRN (11:00)
[2018-09-14] MEDS ORDERED: morphine INJ 10 MG/ML 1ML (SYR OR VIAL) IVP ONE (11:00)
--- NOTE | 2018-09-14 11:06 | Progress Note-Post Operative ---
Post-Operative Progess Note Surgeon (s)/Manager Council (s) Surgeon BETZY HOOVER MD Manager Council: NONE Pre-Operative Diagnosis RT URETERAL AND BILATERAL RENAL STONES Post-Operative Diagnosis BILATERAL RENAL STONES Procedure & Operative Findings Date of Procedure 09/14/18 Procedure Performed/Findings CYSTO, RT RETROGRADE UROGRAM AND RT ESWL Anesthesia Type GENERAL Estimated Blood Loss Estimated blood loss (mL): NONE Specimens/Packing Specimens Removed NONE Packing: NONE BETZY HOOVER MD Sep 14, 2018 11:06
--- NOTE | 2018-09-14 11:08 | Discharge Inst-Urology ---
Discharge Inst-Urology Discharge Medications New, Converted, or Re-newed RX: RX on Chart Patient Instructions/Follow Up Plan Please make appointment to been seen in office Wednesday 09/27. KUB prior to it KUB on way home Post ESWL instructions Increase oral fluids for 48 hours and then as needed. Diet and Activity as tolerated. If questions or concerns contact your physician Or seek help at emergency department. BETZY HOOVER MD Sep 14, 2018 11:08
[2018-09-14 11:35] VITALS: BP 150/94
[2018-09-14 11:40] VITALS: BP 150/94
--- NOTE | 2018-09-14 11:57 | Anesthesia-General Post-Op ---
General Patient Condition Mental Status/LOC: Same as Preop Cardiovascular: Satisfactory Nausea/Vomiting: Absent Respiratory: Satisfactory Pain: Controlled Complications: Absent Post Op Complications Complications None Follow Up Care/Instructions Patient Instructions None needed. Anesthesia/Patient Condition Patient Condition Patient is doing well, no complaints, stable vital signs, no apparent adverse anesthesia problems. No complications reported per nursing. JUNE HERRERA CRNA Sep 14, 2018 11:57
[2018-09-14] MEDS ORDERED: NITR-65 PO (11:58)
[2018-09-14] MEDS ORDERED: HYDR-3870 PO (11:58)
[2018-09-14] MEDS ORDERED: TAMS0.4C98 PO (11:58)
[2018-09-14 12:10] VITALS: BP 145/80
[2018-09-14 12:35] VITALS: BP 145/80
--- NOTE | 2018-09-14 15:07 | OPERATIVE REPORT ---
DATE OF SERVICE: 09/14/2018 PREOPERATIVE DIAGNOSES: 1. Right proximal ureteral stone. 2. Bilateral renal stones. POSTOPERATIVE DIAGNOSIS: Bilateral renal stones. SURGEON: Mike Hoover MD. ANESTHESIA: General. COMPLICATIONS: None. OPERATIONS PERFORMED: Cystoscopy with right retrograde urogram and right ESWL. DESCRIPTION OF PROCEDURE: Under satisfactory general anesthesia, the patient was placed in supine position on the ESWL table. The patient has had a right proximal ureteral stone and bilateral renal stones; however, this morning, KUB did not show the stone in the right ureter and there was an extra calcification showing up in the right mid naye of the kidney. It looked a lot similar to the previously seen stone in the ureter. We tried to find the presumed previous ureteral stone. The patient has never passed any on his own and has never had any pain. We were unsuccessful to do that with the machine, so we put the patient in lithotomy position. Genitalia were prepped and draped in the usual sterile fashion. Cystoscope was introduced under vision. The anterior urethra was normal. The prostate was slightly enlarged with some bladder neck obstruction and trabeculations. Ureteric orifices were normal in shape, size and configuration with clear efflux on both sides equally. Using the foroblique lens, I passed a 6-Hebrew ureteral catheter into the right ureteral orifice and went up all the way to the right renal pelvis guided fluoroscopically. There was no resistance, no problem at all and backed up the catheter all the way down to the distal ureter just above the bladder and injected some contrast filled up the ureter without any filling defect and no dilatation and complete emptying of the ureter on withdrawing the catheter. I emptied the bladder, removed the cystoscope, put the patient back in supine position. We localized the mid calyceal right renal stone, which was originally the offending stone and delivered 3000 shocks, it took that much to break it up completely at kV of 4. The patient received 30 mg of Toradol and 40 mg of Lasix at the end of the procedure. He tolerated the procedure well and was sent to recovery room in stable condition. PLAN: We will see him back in 2 weeks. To get rid of this stone completely, we will have a choice to do the right ESWL with possible left next time when the patient is here on the . This was fully explained to his . Job ID: [id number] DocumentID: [id number] Dictated Date: 09/14/2018 11:12:38 School Custodian Date: 09/14/2018 15:06:51 Dictated By: MIKE HOOVER MD
--- NOTE | 2018-09-14 16:18 | Diagnostic Imaging Report ---
INDICATION: Status post right-sided lithotripsy. TIME OF EXAMINATION: 12:18 PM. COMPARISON: Correlation is made with the prior study from earlier this same day. FINDINGS: Numerous calculi overlie both renal shadows. This appears to be similar to earlier today although there may be some increase in some fragmentation of left-sided calculi in the mid and lower pole. The right-sided calculi are somewhat obscured by overlying bowel gas. No definite calculi along the course of the ureters are seen. IMPRESSION: Bilateral urinary tract calculi as described. No definite ureteral calculi are detected. Dictated by: Dictated on workstation # [id number]
== END 2018-09-14 12:40 | disposition home or self-care (01) ==
LOC: SDC 06:33
PROVIDERS: ATTEND Urology
DX: N20.0 Calculus of kidney (principal); I10 Essential (primary) hypertension; G47.33 Obstructive sleep apnea (adult) (pediatric); K21.9 Gastro-esophageal reflux disease without esophagitis; Z87.891 Personal history of nicotine dependence; Z79.899 Other long term (current) drug therapy
CPT/HCPCS: 74018; 87081

== ENCOUNTER 2018-09-27 05:32 | Outpatient (CLI) | payer MEDICARE ==
[~2018-09-27] VITALS: Ht 182.9 cm; Wt 102.1 kg
== END 2018-09-27 15:52 ==
LOC: PREOP 05:32
PROVIDERS: ATTEND Urology
DX: Z01.818 Encounter for other preprocedural examination (principal)

== ENCOUNTER → 2018-09-27 | Outpatient (CLI) | payer MEDICARE ==
--- NOTE | 2018-09-27 17:59 | Diagnostic Imaging Report ---
INDICATION: Status post lithotripsy. COMPARISON: 09/14/2018. FINDINGS: There remain bilateral mineralizations overlying the renal fossa. On the left, these have a semi-comminuted appearance. On the right, there is a larger cluster measuring up to 9 mm. Nonobstructive bowel gas pattern. Scattered pelvic phleboliths. Stable degenerative changes of lumbar spine. IMPRESSION: Bilateral renal calculi have a stable appearance compared to the 09/14/2018 exam. Dictated by: Dictated on workstation # [id number]
== END ==
LOC: RAD 13:45
PROVIDERS: ATTEND Urology
DX: N20.0 Calculus of kidney (principal); Z98.890 Other specified postprocedural states
CPT/HCPCS: 74018

== ENCOUNTER 2018-09-29 08:34 | Day surgery (SDC) | payer MEDICARE ==
[~2018-09-29] VITALS: Ht 182.9 cm; Wt 107.3 kg
[2018-09-29] MEDS ORDERED: cefTRIAXone FOR IV USE 1,000 MG in WATER (STERILE) FOR INJECTION 10 ML IV ONE (08:45)
[2018-09-29 08:55] VITALS: BP 153/97
[2018-09-29] MEDS ORDERED: DEXAMETHASONE 10 MG/ML (DECADRON) 1 ML VIAL ONE (09:04)
[2018-09-29] MEDS ORDERED: LIDOCAINE PF 2% 5 ML (XYLOCAINE) VIAL ONE (09:04)
[2018-09-29] MEDS ORDERED: proPOfol 200 MG/20 ML (DIPRIVAN) VIAL IV ONE (09:04)
[2018-09-29] MEDS ORDERED: fentaNYL INJECTION 100 MCG/2 ML AMP ONE (09:05)
[2018-09-29] MEDS ORDERED: MIDAZOLAM 2 MG/2 ML (VERSED) VIAL ONE (09:05)
[2018-09-29] MEDS: LACTATED RINGERS 1,000 ML IV PRN ×2 (09:09→10:03)
--- NOTE | 2018-09-29 09:09 | Diagnostic Imaging Report ---
INDICATION: Renal calculi. Single AP view of the abdomen is obtained. Since 09/27/2018, there has been no significant change in distribution of numerous calculi within the kidneys bilaterally. There is calcification now projecting over the lower margin of the right sacrum. This may represent ureteric stone. There is also calcification in the left hemipelvis which likely resides within the prostate gland. Left convexity curvature and degenerative changes are seen in the lumbar spine. IMPRESSION: No significant change in numerous bilateral renal calculi with probable slight migration distally of calcification within the right ureter. Dictated by: Dictated on workstation # [id number]
--- NOTE | 2018-09-29 09:12 | Progress Note-Pre Operative ---
Pre-Operative Progress Note H&P Reviewed The H&P was reviewed, patient examined and no changes noted. Date Seen by Provider: Sep 29, 2018 Time Seen by Provider: 09:11 Date H&P Reviewed: Sep 29, 2018 Time H&P Reviewed: 09:11 Pre-Operative Diagnosis: BILATERAL RENAL STONES BETZY HOOVER MD Sep 29, 2018 09:12
[2018-09-29] MEDS ORDERED: ONDANSETRON 4 MG/2 ML (SDV) Z0FRAN ONE (09:13)
[2018-09-29] MEDS ORDERED: SEVOFLURANE (ULTANE) 15 ML INHAL SOLN ONE ×2 (09:13→09:54)
--- NOTE | 2018-09-29 09:37 | Progress Note-Post Operative ---
Post-Operative Progess Note Surgeon (s)/Cup Trimming Machine Operator (s) Surgeon BETZY HOOVER MD Cup Trimming Machine Operator: NONE Pre-Operative Diagnosis BILATERAL RENAL STONES Post-Operative Diagnosis SAME Procedure & Operative Findings Date of Procedure 09/29/18 Procedure Performed/Findings RT ESWL Anesthesia Type GENERAL Estimated Blood Loss Estimated blood loss (mL): NONE Specimens/Packing Specimens Removed NONE Packing: NONE BETZY HOOVER MD Sep 29, 2018 09:37
--- NOTE | 2018-09-29 09:40 | Discharge Inst-Urology ---
Discharge Inst-Urology Discharge Medications New, Converted, or Re-newed RX: RX on Chart Patient Instructions/Follow Up Plan Please make appointment to been seen in office Friday 09/15, KUB prior to it KUB on way home Post ESWL instructions Increase oral fluids for 48 hours and then as needed. Diet and Activity as tolerated. If questions or concerns contact your physician Or seek help at emergency department. BETZY HOOVER MD Sep 29, 2018 09:40
[2018-09-29] MEDS ORDERED: KETOROLAC 30 MG/ML VIAL ONE (09:48)
[2018-09-29] MEDS ORDERED: FUROSEMIDE 40 MG/4 ML INJ (LASIX) ONE (09:48)
[2018-09-29] MEDS ORDERED: PHENYLEPHRINE 100 MCG/ML 10 ML (ANESTHESIA) SYR ONE (09:48)
--- NOTE | 2018-09-29 10:14 | OPERATIVE REPORT ---
DATE OF SERVICE: 09/29/2018 PREOPERATIVE DIAGNOSIS: Bilateral renal stones. POSTOPERATIVE DIAGNOSIS: Bilateral renal stones. OPERATION PERFORMED: Right ESWL. SURGEON: Mike Hoover MD. ANESTHESIA: General. COMPLICATIONS: None. DESCRIPTION OF PROCEDURE: Under satisfactory general anesthesia, the patient in supine position on the ESWL table, the large lower pole right renal stones were localized. Shocks were delivered at a kV of 4 and a total of 2500 shocks completely fragmented the stones. The patient received 40 mg of Lasix and 30 mg of Toradol IV at the end of the procedure. He tolerated the procedure and anesthesia well and was sent to the recovery room in stable condition. Job ID: [id number] DocumentID: [id number] Dictated Date: 09/29/2018 09:53:08 Mammography Supervisor Date: 09/29/2018 10:14:10 Dictated By: MIKE HOOVER MD
[2018-09-29] MEDS ORDERED: ONDANSETRON 4 MG/2 ML (SDV) Z0FRAN IVP PRN (10:15)
[2018-09-29] MEDS ORDERED: morphine INJ 10 MG/ML 1ML (SYR OR VIAL) IVP ONE (10:15)
[2018-09-29] MEDS ORDERED: MEPERIDINE (DEMEROL) INJ 50 MG/ML IVP ONE (10:15)
[2018-09-29] MEDS ORDERED: HYDROmorphone 2 MG/ML VIAL (DILAUDID) IV ONE (10:15)
[2018-09-29 10:50] VITALS: BP 149/83
[2018-09-29] MEDS ORDERED: TRAM50TA2 PO (11:15)
[2018-09-29] MEDS ORDERED: TAMS0.4C98 PO (11:15)
[2018-09-29] MEDS ORDERED: NITR-65 PO (11:15)
[2018-09-29 11:20] VITALS: BP 149/99
[2018-09-29 11:50] VITALS: BP 146/88
--- NOTE | 2018-09-29 11:57 | Anesthesia-General Post-Op ---
General Patient Condition Mental Status/LOC: Same as Preop Cardiovascular: Satisfactory Nausea/Vomiting: Absent Respiratory: Satisfactory Pain: Controlled Complications: Absent Post Op Complications Complications None Follow Up Care/Instructions Patient Instructions None needed. Anesthesia/Patient Condition Patient Condition Patient is doing well, no complaints, stable vital signs, no apparent adverse anesthesia problems. ANDERSON PASTOR DO Sep 29, 2018 11:57
[2018-09-29 12:05] VITALS: BP 146/88
--- NOTE | 2018-09-29 15:38 | Diagnostic Imaging Report ---
EXAMINATION: Supine abdomen at 11:42 a.m. INDICATION: Nephrolithiasis. FINDINGS: As noted on the exam performed earlier today, there are numerous calcifications overlying each kidney. Reportedly in the interval since the prior exam, the patient has undergone ESWL. The largest calcification overlying the inferior pole of the right kidney does seem somewhat smaller. On the prior exam, this measured 9.7 mm. On this study, it is now estimated to be 7.0 mm. This calcification may be partially fragmented. The other calcifications within the kidney do not seem to have changed significantly. There is no sign of a calculus along the expected paths of the ureters. The small phlebolith in the right lower quadrant seen previously is again evident and no different. IMPRESSION: 1. The calcification overlying the inferior pole of the right kidney seen previously does measure somewhat smaller and may have been fragmented during the ESWL of procedure. 2. The overall appearance of the abdomen is otherwise no different. If indicated, follow-up abdomen exam would be recommended. Dictated by: Dictated on workstation # [id number]
== END 2018-09-29 12:05 | disposition home or self-care (01) ==
LOC: SDC 08:34
PROVIDERS: ATTEND Urology
DX: N20.0 Calculus of kidney (principal); Z11.2 Encounter for screening for other bacterial diseases; I10 Essential (primary) hypertension; G47.33 Obstructive sleep apnea (adult) (pediatric); Z79.899 Other long term (current) drug therapy; Z88.5 Allergy status to narcotic agent
CPT/HCPCS: 74018; 87081

== ENCOUNTER → 2018-10-13 | Outpatient (CLI) | payer MEDICARE ==
[~2018-10-13] MED LIST changes: +TRAM50TA2 PO
--- NOTE | 2018-10-13 16:12 | Diagnostic Imaging Report ---
INDICATION: Bilateral renal stones, post extracorporeal shockwave lithotripsy. TECHNIQUE: Single supine view of the abdomen at 02:06 p.m. CORRELATION STUDY: 09/29/2018. FINDINGS: Multiple calcifications projecting over bilateral renal silhouettes are again demonstrated. Stone burden is significantly greater on the left compared to the right. On the right, the larger area of stones projecting over the inferior pole appears to be somewhat more dispersed and fragmented. No definitive calcification along the expected course of either ureter. Calcification in the hemipelvis unchanged. IMPRESSION: 1. Bilateral nephrolithiasis. Stone burden greatest on the left compared to the right. The stones over the inferior pole of the right kidney appear to be slightly fragmented and somewhat dispersed compared to prior study. Dictated by: Dictated on workstation # [id number]
== END ==
LOC: RAD 13:56
PROVIDERS: ATTEND Urology
DX: N20.0 Calculus of kidney (principal); Z98.890 Other specified postprocedural states
CPT/HCPCS: 74018

== ENCOUNTER → 2019-01-12 | Outpatient (CLI) | payer MEDICARE ==
--- NOTE | 2019-01-12 16:09 | Diagnostic Imaging Report ---
Supine abdomen at 3:09. Indication: Bilateral renal stones. The prior exam of 10/13/2018 noted bilateral nephrolithiasis. On this exam the calcifications overlying the kidneys are again evident and do not seem to have changed significantly. There is still no sign of a calculus along the expected paths of the ureters to indicate urolithiasis. The phlebolith low in the pelvis on the right seen previously is again evident. There is some gas in both large and small bowel in a nonspecific fashion. There is no sign of a bowel obstruction. There is no mass or organomegaly identified. The degenerative disc and bony disease involving the lumbar spine noted on the prior exam is again evident and no different. Impression: 1. There are calcifications overlying both kidneys. These findings are similar to the prior exam. There is no evidence for a calculus along the expected path of the ureters. 2. If there is clinical concern regarding an acute obstruction of the collecting systems, then CT would be recommended for further study. Dictated by: Dictated on workstation # [id number]
== END ==
LOC: RAD 14:58
PROVIDERS: ATTEND Urology
DX: N20.0 Calculus of kidney (principal)
CPT/HCPCS: 74018

== ENCOUNTER → 2020-01-17 | Outpatient (CLI) | payer MEDICARE ==
[~2020-01-17] MED LIST changes: -TAMS0.4C98 PO; +TMSL.4C PO; -TRAM50TA2 PO; +TRM50T PO
--- NOTE | 2020-01-17 15:46 | Diagnostic Imaging Report ---
INDICATION: Bilateral kidney stones, followup. TIME OF EXAM: 3:22 PM. COMPARISON: Abdominal radiograph from 01/12/2019. FINDINGS: Calcifications overlying both renal shadows, greatest on the left, are again noted and appear to be very similar to the examination of 1 year earlier. No definite calculi along the expected course of the ureters is seen. A right pelvic phlebolith is again noted. The bowel gas pattern is nonobstructed. No free air is identified. IMPRESSION: Bilateral nephrolithiasis, similar to the examination of 1 year earlier. Dictated by: Dictated on workstation # [id number]
== END ==
LOC: RAD 14:55
PROVIDERS: ATTEND Urology
DX: N20.0 Calculus of kidney (principal)
CPT/HCPCS: 74018

== ENCOUNTER → 2020-05-18 | Outpatient (CLI) | payer MEDICARE | LOC: CARD 09:30 | PROVIDERS: ATTEND Family Medicine | DX: I48.91 Unspecified atrial fibrillation (principal) | CPT/HCPCS: 93225; 93226 ==

== ENCOUNTER → 2021-08-22 | Outpatient (CLI) | payer MEDICARE ==
[~2021-08-22] MED LIST changes: +ASPI-479 PO; +DULO60CA7 PO; +KETO10TA PO; -LISI-556 PO; +LISI5TAB20 PO; -OXYC-471 PO; +OXYC1TAB11 PO; +ROSU10TA28 PO; +TERA5CAP10 PO; -TERA5CAP3 PO
--- NOTE | 2021-08-22 08:19 | Diagnostic Imaging Report ---
Supine abdomen at 801h. INDICATION: Bilateral kidney pain As noted on the prior exam of 01/17/2020 there are multiple calcific densities overlying both kidneys consistent with nephrolithiasis. In the interval since the prior exam a tubular collection of calcifications have developed in the region of the distal left ureter. I suspect that these are producing partial obstruction of the left collecting system. There is also a new much smaller calcific density along the path of the right ureter in the mid pelvis. The possibility that this is within the distal right ureter should be considered. There is no mass or organomegaly identified. The osseous structures are intact. Degenerative disc and bony disease is again seen throughout the lumbar spine. IMPRESSION: 1. In the interval since the prior exam calcific densities have developed in the region of both distal ureters. There may be obstruction of the left collecting system and perhaps the right kidney. CT would be recommended for further study. 2. There continues to be numerous calcifications overlying each kidney. Dictated by: Dictated on workstation # [id number]
--- NOTE | 2021-08-22 09:20 | Diagnostic Imaging Report ---
PROCEDURE: CT abdomen and pelvis without contrast. TECHNIQUE: Multiple contiguous axial images were obtained through the abdomen and pelvis without the use of intravenous contrast. Auto Exposure Controls were utilized during the CT exam to meet ALARA standards for radiation dose reduction. INDICATION: Abdominal pain There are no prior CT abdomen examinations available for comparison. The plain film exam of the abdomen performed on 01/17/2020 did note bilateral nephrolithiasis. On this exam, there are again multiple calculi within both kidneys. There is a tubular collection of calculi in the distal right ureter. The largest of these calculi measures approximately 5.9 mm. The ureter proximal to the calculus is dilated as is the left renal pelvis consistent with obstruction. There is no sign of obstructive calculus involving the right kidney or collecting system. The urinary bladder is not well distended and difficult to assess. There is no obvious bladder abnormality evident. The prostate gland is not enlarged. There are few diverticula in the sigmoid colon but there is no sign of acute diverticulitis. The appendix was not well-visualized but there are no indirect signs of acute appendicitis. There are multiple cysts associated with the liver. The largest of these is along the medial aspect of the right lobe and measures 7.7 cm. The spleen, pancreas, adrenals, aorta and inferior vena cava show no sign of an acute abnormality. There is no evidence for cholelithiasis or acute cholecystitis. The stomach is partially filled with fluid and difficult to assess. There is a small hiatal hernia. The lung bases are generally clear. The bone windows show no evidence for a fracture or for a destructive lesion. There is degenerative disc and bony disease in the lumbar spine. IMPRESSION: 1. There is partial obstruction of the left collecting system due to multiple calculi in the distal left ureter. 2. There is no evidence for obstruction of the right collecting system. There are still numerous nonobstructive calculi within both kidneys. 3. There is no acute abnormality of the abdomen or pelvis noted otherwise. Dictated by: Dictated on workstation # [id number]
== END ==
LOC: RAD 07:45
PROVIDERS: ATTEND Urology
DX: N20.2 Calculus of kidney with calculus of ureter (principal)
CPT/HCPCS: 74018; 74176

== ENCOUNTER 2021-08-26 13:30 | Outpatient (CLI) | payer MEDICARE ==
[~2021-08-26] VITALS: Ht 180.3 cm; Wt 61.4 kg
[~2021-08-26 13:30] MED LIST changes: -ASPI-479 PO; -DULO60CA7 PO; -KETO10TA PO; -ROSU10TA28 PO
[2021-08-27] MEDS ORDERED: ROSU10TA28 PO ×2 (07:35)
[2021-08-27] MEDS ORDERED: DULO60CA7 PO ×2 (07:35)
[2021-08-27] MEDS ORDERED: ASPI-479 PO ×2 (07:35)
[2021-08-27] MEDS ORDERED: NITR-65 PO ×2 (09:52)
[2021-08-27] MEDS ORDERED: TMSL.4C PO ×2 (09:52)
[2021-08-27] MEDS ORDERED: KETO10TA PO ×2 (09:52)
== END 2021-08-26 15:03 | disposition home or self-care (01) ==
LOC: PREOP 13:30
PROVIDERS: ATTEND Urology
DX: Z01.818 Encounter for other preprocedural examination (principal)

== ENCOUNTER 2021-08-27 06:32 | Day surgery (SDC) | payer MEDICARE ==
[~2021-08-27] VITALS: Ht 180.3 cm; Wt 61.4 kg
[2021-08-27] VITALS (9 sets, daily range): BP systolic 119–151; BP diastolic 71–98
[2021-08-27] MEDS ORDERED: LACTATED RINGERS 1,000 ML IV PRN (06:45)
[2021-08-27] MEDS ORDERED: cefTRIAXone 1 GM PRE-MIX 50 ML IV ONE (06:45)
--- NOTE | 2021-08-27 07:16 | Progress Note-Pre Operative ---
Pre-Operative Progress Note H&P Reviewed The H&P was reviewed, patient examined and no changes noted. Date Seen by Provider: Aug 27, 2021 Time Seen by Provider: 07:16 Date H&P Reviewed: Aug 27, 2021 Time H&P Reviewed: 07:16 Pre-Operative Diagnosis: LT DISTAL URETERAL STONES BETZY HOOVER MD Aug 27, 2021 07:16
[2021-08-27] MEDS ORDERED: ROSU10TA28 PO ×2 (07:35)
[2021-08-27] MEDS ORDERED: ASPI-479 PO ×2 (07:35)
[2021-08-27] MEDS ORDERED: DULO60CA7 PO ×2 (07:35)
--- NOTE | 2021-08-27 07:46 | Diagnostic Imaging Report ---
INDICATION: Nephrolithiasis. TECHNIQUE: 2 supine view of the abdomen 7:20 AM CORRELATION STUDY: 08/22/2021 FINDINGS: Innumerable calcifications projecting over bilateral renal silhouettes the left slightly more prominent compared to the right. Multiple calcifications bilateral hemipelves overall stable as well. These overall appear unchanged as position and orientation. The linearly grouped calcification left hemipelvis correspond to known calcification distal left ureter from prior CT. Leftward curvature lumbar spine with advanced degenerative changes present. IMPRESSION: 1. Extensive, innumerable opacification of bilateral renal silhouettes left greater than right. 2. Linearly oriented grouped calcifications left hemipelvis corresponds to the known distal left ureteral stones. Dictated by: Dictated on workstation # [id number]
--- NOTE | 2021-08-27 07:56 | Progress Note-Post Operative ---
Post-Operative Progess Note Surgeon (s)/Inspector Plating (s) Surgeon BETZY HOOVER MD Inspector Plating: NONE Pre-Operative Diagnosis LT DISTAL URETERAL STONES Post-Operative Diagnosis SAME Procedure & Operative Findings Date of Procedure 08/27/21 Procedure Performed/Findings LT ESWL Anesthesia Type GENERAL Estimated Blood Loss Estimated blood loss (mL): NONE Specimens/Packing Specimens Removed NONE Packing: NONE BETZY HOOVER MD Aug 27, 2021 07:56
--- NOTE | 2021-08-27 07:58 | Discharge Inst-Urology ---
Discharge Inst-Urology Reconcile Patient Problems Problems Reviewed?: Yes Final Diagnosis LT DISTAL URETERAL STONES Patient Instructions/Follow Up Plan/Assessment/Instructions Please make appointment to been seen in office Saturday 09/09, KUB prior to it. KUB on way home Post ESWL instructions Stay off ASA Increase oral fluids for 48 hours and then as needed. Diet and Activity as tolerated. If questions or concerns contact your physician Or seek help at emergency department. BETZY HOOVER MD Aug 27, 2021 07:58
[2021-08-27] MEDS ORDERED: KETOROLAC 30 MG/ML VIAL ONE (08:05)
[2021-08-27] MEDS ORDERED: FUROSEMIDE 40 MG/4 ML INJ (LASIX) ONE (08:05)
[2021-08-27] MEDS ORDERED: MIDAZOLAM 2 MG/2 ML (VERSED) VIAL ONE (08:05)
[2021-08-27] MEDS ORDERED: fentaNYL INJ 100 MCG/2 ML AMP ONE (08:05)
[2021-08-27] MEDS ORDERED: proPOfol 200 MG/20 ML (DIPRIVAN) VIAL IV ONE (08:05)
[2021-08-27] MEDS ORDERED: ONDANSETRON 4 MG/2 ML (SDV) Z0FRAN ONE (08:05)
[2021-08-27] MEDS ORDERED: LIDOCAINE PF 2% 5 ML (XYLOCAINE) VIAL ONE (08:05)
[2021-08-27] MEDS ORDERED: SEVOFLURANE (ULTANE) 15 ML INHAL SOLN ONE (09:05)
[2021-08-27] MEDS ORDERED: NITR-65 PO ×2 (09:52)
[2021-08-27] MEDS ORDERED: KETO10TA PO ×2 (09:52)
[2021-08-27] MEDS ORDERED: TMSL.4C PO ×2 (09:52)
--- NOTE | 2021-08-27 10:54 | Anesthesia-General Post-Op ---
General Patient Condition Mental Status/LOC: Same as Preop Cardiovascular: Satisfactory Nausea/Vomiting: Absent Respiratory: Satisfactory Pain: Controlled Complications: Absent Post Op Complications Complications None Follow Up Care/Instructions Patient Instructions None needed. Anesthesia/Patient Condition Patient Condition Patient is doing well, no complaints, stable vital signs, no apparent adverse anesthesia problems. No complications reported per nursing. MANAV BARAKAT CRNA Aug 27, 2021 10:54
--- NOTE | 2021-08-27 11:39 | Diagnostic Imaging Report ---
INDICATION: Nephrolithiasis. Supine image of the abdomen is obtained with comparison made to study of 08/27/2021. FINDINGS: Extensive bilateral medullary nephrolithiasis is again noted. Numerous calculi distend the distal left ureter in a similar appearance when compared to previous exam. Calcifications in the right hemipelvis have an appearance more suggestive of atherosclerosis and phlebolith. There also appear to be stones either within the urinary bladder or at the level of the prostate gland. Overall appearance does show no adverse change. IMPRESSION: Extensive bilateral nephrolithiasis with stones again present within the distal left ureter. Dictated by: Dictated on workstation # [id number]
--- NOTE | 2021-08-27 14:18 | OPERATIVE REPORT ---
DATE OF SERVICE: 08/27/2021 PREOPERATIVE DIAGNOSIS: Left distal ureteral stones. POSTOPERATIVE DIAGNOSIS: Left distal ureteral stones. OPERATION PERFORMED: Left ESWL. SURGEON: Mike Hoover MD ANESTHESIA: General. COMPLICATIONS: None. DESCRIPTION OF PROCEDURE: Under satisfactory general anesthesia, the patient in supine position on the ESWL table. First, we localized the stones distally. Delivered shocks at kV of 6 and gradually moved up and then up and down the whole segment of stones. There was good fragmentation of the stones and intensity well. The patient received 40 mg of Lasix and 30 mg of Toradol IV at the end of the procedure. We delivered a total of 3000 shocks. The patient tolerated the procedure and anesthesia well and was sent to recovery room in stable condition. Job ID: [id number] DocumentID: [id number] Dictated Date: 08/27/2021 09:02:53 Senior Control Systems Engineer Date: 08/27/2021 14:16:32 Dictated By: MIKE HOOVER MD
== END 2021-08-27 11:30 | disposition home or self-care (01) ==
LOC: SDC 06:32
PROVIDERS: ATTEND Urology
DX: N20.1 Calculus of ureter (principal); I10 Essential (primary) hypertension; G47.33 Obstructive sleep apnea (adult) (pediatric); Z99.89 Dependence on other enabling machines and devices; Z79.899 Other long term (current) drug therapy; Z79.82 Long term (current) use of aspirin
CPT/HCPCS: 74018; 87081

== ENCOUNTER → 2021-09-09 | Outpatient (CLI) | payer MEDICARE ==
[~2021-09-09] MED LIST changes: +ASPI-479 PO; +DULO60CA7 PO; +KETO10TA PO; +ROSU10TA28 PO
--- NOTE | 2021-09-09 15:02 | Diagnostic Imaging Report ---
INDICATION: Left distal ureteral stone status post lithotripsy. TIME OF EXAM: 2:36 PM. COMPARISON: Correlation is made with the prior radiograph from 08/27/2021. FINDINGS: Extensive nephrolithiasis of the bilateral kidneys is again noted. The stone packed distal ureter noted on the prior study is no longer appreciated on today's exam. These calculi may have passed. No definite bladder calculi are seen. No ureteral calculi are detected. IMPRESSION: Bilateral nephrolithiasis. The stone packed distal ureter is no longer appreciated on today's study. Dictated by: Dictated on workstation # [id number]
== END ==
LOC: RAD 14:07
PROVIDERS: ATTEND Urology
DX: N20.2 Calculus of kidney with calculus of ureter (principal); Z98.890 Other specified postprocedural states
CPT/HCPCS: 74018

== ENCOUNTER 2021-09-16 14:00 | Outpatient (CLI) | payer MEDICARE ==
[~2021-09-16] VITALS: Ht 180.3 cm; Wt 104.5 kg
[2021-09-17] MEDS ORDERED: KETO10TA PO (11:02)
[2021-09-17] MEDS ORDERED: TMSL.4C PO (11:02)
[2021-09-17] MEDS ORDERED: NITR-65 PO (11:02)
== END 2021-09-17 09:34 | disposition home or self-care (01) ==
LOC: PREOP 14:00
PROVIDERS: ATTEND Urology
DX: Z01.818 Encounter for other preprocedural examination (principal)

== ENCOUNTER → 2021-09-16 | Outpatient (CLI) | payer MEDICARE ==
--- NOTE | 2021-09-16 14:46 | Diagnostic Imaging Report ---
EXAMINATION: Abdomen at 2:03 p.m. INDICATION: Abdominal pain. Two supine views were obtained. FINDINGS: The previous exam of 09/09/2021 noted calcifications overlying each kidney as well as a single calcification low in the pelvis on the right. The renal calcifications are again evident on this study and do not appear to have changed significantly. However, there is now an 8.3 mm rounded calcification overlying the left iliac wing. This seems too laterally positioned to be along the path of the left ureter. The previous exam also noted that the calcifications packed in the distal left ureter seen on the prior exam of 08/27/2021 are no longer evident. On this study, there is still no evidence for a new calcification along the path of the distal left ureter. The overall appearance of the abdomen is otherwise stable. IMPRESSION: 1. There continue to be calcifications overlying both kidneys, but there is no sign of a calculus along the expected paths of the ureters. 2. The newly developed calcific density overlying the left pelvis is of uncertain etiology. Dictated by: Dictated on workstation # [id number]
== END ==
LOC: RAD 13:44
PROVIDERS: ATTEND Urology
DX: N20.9 Urinary calculus, unspecified (principal)
CPT/HCPCS: 74018

== ENCOUNTER 2021-09-17 07:39 | Day surgery (SDC) | payer MEDICARE ==
[~2021-09-17] VITALS: Ht 180 cm; Wt 104.5 kg
[2021-09-17] VITALS (12 sets, daily range): BP systolic 114–153; BP diastolic 72–106
[2021-09-17] MEDS ORDERED: cefTRIAXone 1 GM PRE-MIX 50 ML IV ONE (07:45)
--- NOTE | 2021-09-17 07:47 | Progress Note-Pre Operative ---
Pre-Operative Progress Note H&P Reviewed The H&P was reviewed, patient examined and no changes noted. Date Seen by Provider: Sep 17, 2021 Time Seen by Provider: 07:47 Date H&P Reviewed: Sep 17, 2021 Time H&P Reviewed: 07:47 Pre-Operative Diagnosis: BILATERAL RENAL STONES BETZY HOOVER MD Sep 17, 2021 07:47
--- NOTE | 2021-09-17 08:31 | Diagnostic Imaging Report ---
ABDOMEN/KUB 1VIEW INDICATION: Pre-lithotripsy, kidney stones COMPARISON: CT abdomen pelvis of 08/22/2021 TECHNIQUE: Single AP view of the abdomen FINDINGS: There are a numerous mineralizations associated with both kidneys most compatible with nephrocalcinosis. Previously noted distal ureteral calculi are not radiographically apparent or may have resolved. Degenerative changes is unchanged in the lumbar spine. IMPRESSION: No change in bilateral nephrolithiasis. No appreciable ureteral stones by radiography. Dictated by: Dictated on workstation # [id number]
[2021-09-17] MEDS: LACTATED RINGERS 1,000 ML IV PRN ×2 (08:33→09:41)
[2021-09-17] MEDS ORDERED: fentaNYL INJ 100 MCG/2 ML AMP ONE (08:37)
[2021-09-17] MEDS ORDERED: SEVOFLURANE (ULTANE) 15 ML INHAL SOLN ONE (08:37)
[2021-09-17] MEDS ORDERED: proPOfol 200 MG/20 ML (DIPRIVAN) VIAL IV ONE (08:37)
[2021-09-17] MEDS ORDERED: ONDANSETRON 4 MG/2 ML (SDV) Z0FRAN ONE (08:37)
[2021-09-17] MEDS ORDERED: LIDOCAINE PF 2% 5 ML (XYLOCAINE) VIAL ONE (08:37)
[2021-09-17] MEDS ORDERED: MIDAZOLAM 2 MG/2 ML (VERSED) VIAL ONE (08:38)
[2021-09-17] MEDS ORDERED: FUROSEMIDE 40 MG/4 ML INJ (LASIX) ONE (09:15)
[2021-09-17] MEDS ORDERED: KETOROLAC 30 MG/ML VIAL ONE (09:15)
--- NOTE | 2021-09-17 09:15 | Progress Note-Post Operative ---
Post-Operative Progess Note Surgeon (s)/Manager Of Change (s) Surgeon BETZY HOOVER MD Manager Of Change: NONE Pre-Operative Diagnosis LEFT URETERAL STONE Post-Operative Diagnosis BILATERAL RENAL STONES Procedure & Operative Findings Date of Procedure 09/17/21 Procedure Performed/Findings LT ESWL Anesthesia Type GENERAL Estimated Blood Loss Estimated blood loss (mL): NONE Specimens/Packing Specimens Removed NONE Packing: NONE BETZY HOOVER MD Sep 17, 2021 09:15
--- NOTE | 2021-09-17 09:16 | Discharge Inst-Urology ---
Discharge Inst-Urology Reconcile Patient Problems Problems Reviewed?: Yes Final Diagnosis BILATERAL RENAL STONES Patient Instructions/Follow Up Plan/Assessment/Instructions Please make appointment to been seen in office in 2 weeks. KUB prior to it KUB on way home Post ESWL instructions Increase oral fluids for 48 hours and then as needed. Diet and Activity as tolerated. If questions or concerns contact your physician Or seek help at emergency department. BETZY HOOVER MD Sep 17, 2021 09:16
[2021-09-17] MEDS ORDERED: PHENYLEPHRINE 100 MCG/ML 10 ML (ANESTHESIA) SYR ONE (09:34)
[2021-09-17] MEDS ORDERED: ONDANSETRON 4 MG/2 ML (SDV) Z0FRAN IVP PRN (10:00)
[2021-09-17] MEDS ORDERED: HYDROmorphone 2 MG/ML VIAL (DILAUDID) IV ONE (10:00)
[2021-09-17] MEDS ORDERED: HYDROmorphone 2 MG/ML VIAL (DILAUDID) ONE (10:26)
--- NOTE | 2021-09-17 10:58 | Anesthesia-General Post-Op ---
General Patient Condition Mental Status/LOC: Same as Preop Cardiovascular: Satisfactory Nausea/Vomiting: Absent Respiratory: Satisfactory Pain: Controlled Complications: Absent Post Op Complications Complications None Follow Up Care/Instructions Patient Instructions None needed. Anesthesia/Patient Condition Patient Condition Patient is doing well, no complaints, stable vital signs, no apparent adverse anesthesia problems. No complications reported per nursing. D/C home per [facility] Criteria: Yes ANGELA ROSADO CRNA Sep 17, 2021 10:58
[2021-09-17] MEDS ORDERED: TMSL.4C PO (11:02)
[2021-09-17] MEDS ORDERED: KETO10TA PO (11:02)
[2021-09-17] MEDS ORDERED: NITR-65 PO (11:02)
--- NOTE | 2021-09-17 11:32 | OPERATIVE REPORT ---
DATE OF SERVICE: 09/17/2021 PREOPERATIVE DIAGNOSIS: Bilateral renal stones. POSTOPERATIVE DIAGNOSIS: Bilateral renal stones. OPERATION PERFORMED: Left ESWL. SURGEON: Mike Hoover MD ANESTHESIA: General. COMPLICATIONS: None. DESCRIPTION OF PROCEDURE: Under satisfactory general anesthesia, the patient in supine position on the ESWL table, we first localized the mid calyceal collection of stones and alternating with the lower pole ones back and forth delivering shocks at kV gradually increased to 6, a total of 3000 shocks were delivered with good fragmentation of the stones. The patient received 30 mg of Toradol and 40 mg of Lasix at the end of the procedure. He tolerated the procedure and anesthesia well and was sent to recovery room in stable condition. Job ID: [id number] DocumentID: [id number] Dictated Date: 09/17/2021 09:45:38 Candy Maker Date: 09/17/2021 11:32:15 Dictated By: MIKE HOOVER MD
--- NOTE | 2021-09-17 12:22 | Diagnostic Imaging Report ---
EXAMINATION: ABDOMEN/KUB 1VIEW. INDICATION: Status post lithotripsy. COMPARISON: Earlier this same day at 8:01 AM. FINDINGS AND IMPRESSION: 1. No change in appearance of bilateral nephrolithiasis. 2. Nonobstructive bowel gas pattern. Dictated by: Dictated on workstation # [id number]
== END 2021-09-17 12:10 | disposition home or self-care (01) ==
LOC: SDC 07:39
PROVIDERS: ATTEND Urology
DX: N20.0 Calculus of kidney (principal); I10 Essential (primary) hypertension; N40.0 Benign prostatic hyperplasia without lower urinary tract symptoms; G47.33 Obstructive sleep apnea (adult) (pediatric); Z79.899 Other long term (current) drug therapy; Z79.82 Long term (current) use of aspirin
CPT/HCPCS: 74018; 87081

== ENCOUNTER → 2021-10-07 | Outpatient (CLI) | payer MEDICARE ==
--- NOTE | 2021-10-07 15:12 | Diagnostic Imaging Report ---
INDICATION: Abdominal pain. FINDINGS: There are several small calcifications in the calyces of each kidney. There also appears to be a calcification in the region of the right ureter just below the L4 transverse process. IMPRESSION: Bilateral nephrolithiasis and probable right ureterolithiasis. Dictated by: Dictated on workstation # [id number]
== END ==
LOC: RAD 14:31
PROVIDERS: ATTEND Urology
DX: N20.0 Calculus of kidney (principal)
CPT/HCPCS: 74018

== ENCOUNTER → 2022-01-13 | Outpatient (CLI) | payer MEDICARE ==
--- NOTE | 2022-01-13 17:09 | Diagnostic Imaging Report ---
EXAM: ABDOMEN/KUB 1VIEW INDICATION: Renal stones. COMPARISON: 10/07/2021. FINDINGS: Several punctate calcifications overlying both renal shadows are similar to the prior exam. No renal stones are seen along the course of the ureters or bladder. Nonspecific bowel gas pattern. IMPRESSION: Bilateral nephrolithiasis. No suspicious calcifications along the course of the ureters or bladder. Dictated by: Dictated on workstation # [id number]
== END ==
LOC: RAD 16:14
PROVIDERS: ATTEND Urology
DX: N20.0 Calculus of kidney (principal)
CPT/HCPCS: 74018

== ENCOUNTER → 2023-07-07 | Day surgery (SDC) | payer MEDICARE ==
[~2023-07-07] VITALS: Ht 177.8 cm; Wt 103.9 kg
[~2023-07-07] MED LIST changes: +LIDOCAINE 1% INJ 20 ML VIAL ONE
[2023-07-07 08:05] VITALS: BP 170/93
--- NOTE | 2023-07-07 16:07 | OPERATIVE REPORT ---
DATE OF SERVICE: 07/07/2023 PREOPERATIVE DIAGNOSIS: Syncope. POSTOPERATIVE DIAGNOSIS: Syncope. PROCEDURE: Implantable loop recorder implantation. Implantable loop recorder implantation was carried out today after having obtained an informed consent. DESCRIPTION OF PROCEDURE: [facility] The left prepectoral area was prepared and draped in the usual sterile fashion. A 1% lidocaine was used for local anesthesia. The tools provided with the [employer]onic LINQ II device were used to make a subcutaneous pocket anterior to the fourth intercostal space into which the device was placed. The serial number of the devices are [id number]. The wound edges were closed using Dermabond and Steri-Strips. He tolerated the procedure well. Job ID: [id number] DocumentID: [id number] Dictated Date: 07/07/2023 09:02:50 Surveying Crew Stake Runner Date: 07/07/2023 16:05:00 Dictated By: SHIRIN MOREL MD; PARVEEN; FACP; FACC;
== END | disposition home or self-care (01) ==
LOC: CATH 09:00
PROVIDERS: ATTEND Internal Medicine Cardiovascular Disease
DX: R55 Syncope and collapse (principal); R42 Dizziness and giddiness; R06.02 Shortness of breath; R94.31 Abnormal electrocardiogram [ECG] [EKG]; G89.29 Other chronic pain; M54.9 Dorsalgia, unspecified; Z87.891 Personal history of nicotine dependence
CPT/HCPCS: 33285; C1764